=== PATIENT | male | born 1975 | race Caucasian/White ===

== ENCOUNTER 2020-12-02 22:12 | Emergency (ER) | payer OTHER, SELFPAY ==
[2020-12-02 22:13] VITALS: BP 137/96; PULSE 97; RESP 18; TEMP 35.7; O2SAT 92; BMI 90.2
[2020-12-02 23:33] VITALS: O2SAT 94
--- NOTE | 2020-12-03 00:05 | RAD_ITS ---
EXAM: XR Chest, 1 View CLINICAL INDICATION: 45 years old, Male; covid TECHNIQUE: Frontal view of the chest. This report was created using [employer] report generation technology. COMPARISON: None. FINDINGS: Lungs and pleural spaces: Mild infiltrate or atelectasis in the lung bases. No pneumothorax. No effusion. Heart: Unremarkable. Cardiac silhouette not enlarged. Mediastinum: Central airways and mediastinal contour are unremarkable. Bones/joints: Unremarkable. Soft tissues: Unremarkable. RAD/Chest 1 View (Portable) IMPRESSION: Mild infiltrate or atelectasis in the lung bases. ASSESSMENT: ABNORMAL report - There are abnormal findings in this report which may be related or unrelated to the reason for the exam. Electronically Signed: Grant Odonnell MD at 0:41 EDT Tel , Service support ,
--- NOTE | 2020-12-03 00:21 | ED.VIS.DYS ---
HPI History of Present Illness Chief Complaint: Shortness of Breath Informant: patient and spouse/S.O. Onset/Context/Timing Onset: Days Context: gradual Timing: Intermittent Current Severity: Mild Associated Symptoms cough and green sputum Chest Pain: Positive for None Narrative Narrative: 45-year-old male history of very mild asthma which is no medications for. 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 Patient had symptoms beginning last Wednesday 5+ days ago. And was diagnosed with Covid on Wednesday. States he is having a cough and mildly short of breath. PE Risk Factors: Negative for Cancer, OCP + Smoking + > 35, Prior DVT or PE, Recent immobilization, Recent surgery and Recent travel Prior similar symptoms: No Recent Illness/Hospitalization: No PFSH PFSH Medical History (Updated 12/03/20 @ 01:[address] Shahid Cleaning MD) Asthma COVID-19 Home Medications dexamethasone [Decadron] 6 mg PO DAILY 7 Days #7 tab 12/03/20 [Rx Last Taken Unknown] sulfamethoxazole-trimethoprim 600 tab PO QODAY 12/03/20 [History Last Taken Unknown] Allergy/AdvReac Type Severity Reaction Status Date / Time No Known Allergies Allergy Verified 12/03/20 01:06 Social History Smoking Status: Never smoker ROS ROS ED ROS Narrative Cough. Limited nausea and vomiting resolved. Review of Systems ROS Unobtainable: Denies due to encephalopathy Constitutional Constitutional ED: Denies chills or fever(s) Eyes Eyes: Denies change in vision ENT ENT ED: Denies ear pain or sore throat Cardiovascular Cardiovascular: Denies chest pain Respiratory/Chest Respiratory/Chest: Reports cough, dyspnea and sputum Gastrointestinal Gastrointestinal: Reports nausea and vomiting; Denies abdominal pain Genitourinary Genitourinary ED: Denies dysuria or hematuria Musculoskeletal Musculoskeletal: Reports myalgias Integumentary Denies rash Neurologic Neurologic: Denies headache(s) Psychiatric Psychiatric: Denies depression Endocrine Endocrinology: Denies polyuria Hematologic/Lymphatic Hematologic/Lymphatic: Denies easy bruising Allergic/Immunologic Allergic/Immunologic ED: Denies urticaria EXAM Physical Exam Narrative Exam Narrative: Middle-age male no acute distress vital signs stable afebrile pulse ox 92% on room air no signs hypoxia. HEENT exam unremarkable. Neck nontender no lymphadenopathy. Lungs clear to auscultation bilaterally. No rales, rhonchi or wheezing. Heart regular rate and rhythm no murmur. Rate 90. Abdomen soft nontender normal bowel sounds no peritoneal signs. Moving all 4 extremities. Calves nontender no edema. Neurologic exam awake alert no focal motor deficits. Const Vital Signs: 12/02/20 22:13 Temperature 96.3 F L Temperature Source Temporal Pulse Rate 97 Respiratory Rate 18 Blood Pressure 137/96 H Blood Pressure Mean 109 Pulse Ox 92 Oxygen Delivery Method Room Air Positive well nourished, well developed and obese; Negative for cachectic, contractures or unkempt General Appearance ED: well developed and NAD; Negative for unkempt, cachectic, contractures or pallor Nutritional Appearance: obese; Negative for cachectic HEENT Reports moist mucous membranes atraumatic; Negative for trauma or tenderness Eyes PERRL and EOMs intact bilaterally Neck no lymphadenopathy, supple, no meningeal signs and no JVD General: Negative for tenderness Resp normal respiratory effort and clear to auscultation bilaterally Auscultation: Negative for rales, rhonchi or wheezes Cardio regular rate, regular rhythm, S1 normal heart sound, S2 normal heart sound and no murmurs GI non-tender, non-distended and no masses Auscultation: normoactive bowel sounds Palpation: soft; Negative for tender Back/Spine no CVA tenderness and normal to inspection General Back: Negative for CVA tenderness Extremity normal to inspection General Extremety ED: Negative for edema or tenderness General Extremity: Negative for edema Neuro oriented x3 Sensorium / Orientation: alert, oriented to person, oriented to place and oriented to time; Negative for orientation impaired, confused, lethargic or stuporous Motor Exam: strength 5/5 throughout Psych mental status grossly normal Appearance: Negative for unkempt Skin no wounds General Skin Exam: Negative for jaundice or pallor Lesions: no lesions Rashes: no rashes MDM MDM MDM Narrative Medical decision making narrative: 25-year-old male with Covid diagnosed on Wednesday. Symptoms for 5 days. Chest x-ray being obtained. He'll be referred to the monoclonal antibody therapy center. Repeat exam patient is doing well. Will be written for Decadron. He can speak to his dental specialist at [facility] to determine if at some they want him to do with his history of ocular toxoplasmosis.He will also be referred to the monoclonal antibody center. Radiography Chest X-Ray - ED: 1 View, Read by ED Physician, Heart, Lungs, Mediastinum, Bony Structures, Right Infiltrate and Left Infiltrate Diagnostic Testing: Radiology Impression Chest X-Ray 12/03/20 00:05 IMPRESSION: Mild infiltrate or atelectasis in the lung bases. ASSESSMENT: ABNORMAL report - There are abnormal findings in this report which may be related or unrelated to the reason for the exam. Electronically Signed: Grant Odonnell MD at 0:41 EDT Tel , Service support , Portable single view chest x-ray interpreted by myself and the radiologist may be atelectasis versus early infiltrates of Covid. Discharge Plan Triage Chief Complaint: Shortness of Breath ED Provider: Shahid Cleaning Dx/Rx/DC Orders Clinical Impression: COVID-19 Instructions: Coronavirus Disease 2019 (COVID-19): Overview, Symptoms of COVID-19 Infection Prescriptions: New dexamethasone [Decadron] 6 mg tablet 6 mg PO DAILY 7 Days Qty: 7 RF: 0 No Action sulfamethoxazole-trimethoprim 800-160 mg tablet 600 tab PO QODAY RF: 0 Other Ambulatory Orders: COVID Outpatient Monoclonal Antibody Referral (Routine) Timeframe: 1 Day Facility: [facility] - Location: [facility] Ordered By: Dr. Shahid Cleaning Primary Care Provider: Care Physician,No Primary Referrals: Rubén Candelaria MD [STAFF PHYSICIAN] - 1 Week if not improving Care Physician,No Primary [Primary Care Provider] - Activity Restrictions/Additional Instructions: Follow-up with your clinic assistant the [facility] discussed with them Decadron treatment versus any complications with your toxoplasmosis. Follow-up with the monoclonal antibody therapy center here at the hospital tomorrow. They should call you.If you do not hear from them by noon call them. Return if you are feeling a lot worse. Disposition Disposition: Home, Self Care
[2020-12-03 01:17] VITALS: PULSE 86; RESP 20; O2SAT 94
== END 2020-12-03 01:17 | disposition home or self-care (01) ==
PROVIDERS: Emergency Provider Emergency Medicine
DX: U07.1 COVID-19 (principal); R11.2 Nausea with vomiting, unspecified; J45.909 Unspecified asthma, uncomplicated; E66.9 Obesity, unspecified; Z79.52 Long term (current) use of systemic steroids
CPT/HCPCS: 71045; 99282

== ENCOUNTER 2022-04-27 16:30 | Outpatient (RCR) | payer OTHER, SELFPAY ==
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
--- NOTE | 2022-03-23 17:27 | OTREVAL_ITS ---
Dr. 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 Please see the progress note below for an update on the occupational therapy plan of care! Subjective: pt arrives to session 3 weeks after last session- due to not feeling well. pt states he is weaning out of his orthosis and 10-15 min about every hour- pt states he did try to see he could go 20-25 min but noticed a decrease in the ability to straighten. pt voiced frustration about dealing with injury due to pain limited ROM limiting what pt wants to do. Objective/Function: pt arrives with orthosis on. right IF PIP -5/80*. right cook mayonnaise 95# left 105#(no change from eval). right lateral pinch 14# increase 10# left 18#. right tripod pinch 14# increase from NT left 16#. pt demo improvement in balance of Flex/ext following ex. noted increase in extensor lag by 10* following strengthening of flexor of finger- worked on extensors an noted improvement-. Therapist advised to zoraida tape IF to MF to assist in strength and support to decrease pain and catching finger on something and causing more pain- pt demo understanding-. therapist ed pt on reverse blocking. rubber band use for strengthening extensor component. therapist extensively ed. pt on recovery time can take up to a year. pt demo frustration and irritation of injury as he want to return to his PLOF. Asked pt to give therapist more time to balance flexors and extensors out to get consistent glide and motion. Plan Frequency: 1-2x /Week Duration: 4-6 Weeks Plan: progressing to balance of flexor and extensor components- rec'd 2x a week for 4-6 weeks but pt unable to arrive to sessions more than 1x a week- therapist will ed. pt on ex. HEP Goals - Goals Patient Goals: Regain Mobility, Decrease Pain, Decrease Swelling/Stiffness, Use Hand/Wrist/Arm Normally Again Goal:100% adherence to protocol: Yes Goal:ROM equal to unaffected hand: Yes Goal:Supervisor Aircraft Maintenance/Pinch strength at least 75% of unaffected hand: Yes Goal:No pain with affected hand use: Yes Goal:PIP Circumferences equal to unaffected hand: Yes Goal:Full use of affected hand in daily activities including: Yes Anticipated Interventions Anticipated Interventions: A/AAROM/PROM, Strengthening, Triggerpoint Release, Modalities, Orthoses, Joint Protection/Energy Conservation, Ergonomic Education, Fine Motor Coord/Nathan, Education re assistive Equipment, Education re Diagnosis, Home Program Please do not hesitate to contact me at [phone] by phone or if you have questions or concerns regarding this new plan of care! Sincerely, Jordana Peters, OTR/L, CHT
--- NOTE | 2022-04-28 07:48 | OTREVAL_ITS ---
Dr. 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 Please see the progress note below for an update on the occupational therapy plan of care! Subjective: pt arrives to therapy following last apt. on 03/23/22. pt states he is out of his orthosis completely- pt states he is doing extension excises.pt states he does not feel his finger has changed much- pt states he feel he is just as painful that he is getting use to it. Objective/Function: pt arrives with orthosis off states he has gone without it and has noticed a he can not straighten his finger as much-. right IF PIP - /* DIP +08/06 ( this has changed since his last apt) therapist ed. pt on importance of ex ORL ( maintaining PIP ex while flexing DIP holding for 3-5 sec. NO Fast movements) pt communicates understanding pt demo understanding of the ex. Therapist ed. pt to return to night splint to decrease stress on tendons pt demo understanding but does voice irritation as he has been dealing with injury for so long- therapist attempted to reassure pt it will take a year to recover fully from injury. That in order to balance pull of extensor and flexor tendons he may use splint on and off for a year. pt communicates he is discouraged-pt unable to attend therapy sessions consistently due to schedule and cost. pt given HEP and advised to email/call therapist with concerns- would rec'd pt attending therapy at least to ensure orthosis/splint is still appropriate- pt going to see and than touch base with this therapist. right doughnut machine operator 95# left 105#(no change from eval). right lateral pinch 14# increase 10# left 18#. right tripod pinch 14# increase from NT left 16#. strength does not appear affected at this time from injury. pt demo improvement in balance of Flex/ext following ex. noted increase in extensor lag by 10* following strengthening of flexor of finger- worked on extensors an noted improvement-. Therapist advised to zoraida tape IF to MF to assist in strength and support to decrease pain and catching finger on something and causing more pain- pt demo understanding-. therapist ed pt on reverse blocking. rubber band use for strengthening extensor component. ORL movement with blocking PIP with MP in flexion to avoid hyper ext at MP. therapist extensively ed. pt on recovery time can take up to a year. pt demo frustration and irritation of injury as he want to return to his PLOF. Asked pt to give therapist more time to balance flexors and extensors out to get consistent glide and motion. pt to return to for further assessment and evaluation Plan Frequency: Every Other Week Duration: 3 Months Plan: pt to return to dr. pt will cont with use of splint at night to rest tendon pt to cont. with his HEP Goals - Goals Patient Goals: Regain Mobility, Decrease Pain, Decrease Swelling/Stiffness, Use Hand/Wrist/Arm Normally Again Goal:100% adherence to protocol: Yes Goal:ROM equal to unaffected hand: Yes Goal:Hedis Review Nurse/Pinch strength at least 75% of unaffected hand: Yes Goal:No pain with affected hand use: Yes Goal:PIP Circumferences equal to unaffected hand: Yes Goal:Full use of affected hand in daily activities including: Yes Anticipated Interventions Anticipated Interventions: A/AAROM/PROM, Strengthening, Triggerpoint Release, Modalities, Orthoses, Joint Protection/Energy Conservation, Ergonomic Education, Fine Motor Coord/Nathan, Education re assistive Equipment, Education re Diagnosis, Home Program Please do not hesitate to contact me at [phone] by phone or Fax: if you have questions or concerns regarding this new plan of care! Sincerely, Jordana Peters OTR/L, CHT
--- NOTE | 2022-07-14 08:05 | HP.OTDCSUM ---
It has been my pleasure to treat CANDELARIO CURRIE under orders from Dr. 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 Please see the following information for a summary of their discharge status. Objective/Function: pt arrives with orthosis off states he has gone without it and has noticed a he can not straighten his finger as much-. right IF PIP -25/85* DIP +08/06 ( this has changed since his last apt) therapist ed. pt on importance of ex ORL ( maintaining PIP ex while flexing DIP holding for 3-5 sec. NO Fast movements) pt communicates understanding pt demo understanding of the ex. Therapist ed. pt to return to night splint to decrease stress on tendons pt demo understanding but does voice irritation as he has been dealing with injury for so long- therapist attempted to reassure pt it will take a year to recover fully from injury. That in order to balance pull of extensor and flexor tendons he may use splint on and off for a year. pt communicates he is discouraged-pt unable to attend therapy sessions consistently due to schedule and cost. pt given HEP and advised to email/call therapist with concerns- would rec'd pt attending therapy at least to ensure orthosis/splint is still appropriate- pt going to see and than touch base with this therapist. right well logging mud analysis captain 95# left 105#(no change from eval). right lateral pinch 14# increase 10# left 18#. right tripod pinch 14# increase from NT left 16#. strength does not appear affected at this time from injury. pt demo improvement in balance of Flex/ext following ex. noted increase in extensor lag by 10* following strengthening of flexor of finger- worked on extensors an noted improvement-. Therapist advised to zoraida tape IF to MF to assist in strength and support to decrease pain and catching finger on something and causing more pain- pt demo understanding-. therapist ed pt on reverse blocking. rubber band use for strengthening extensor component. ORL movement with blocking PIP with MP in flexion to avoid hyper ext at MP. therapist extensively ed. pt on recovery time can take up to a year. pt demo frustration and irritation of injury as he want to return to his PLOF. Asked pt to give therapist more time to balance flexors and extensors out to get consistent glide and motion. pt to return to dr. for further assessment and evaluation Patient Goals: Regain Mobility, Decrease Pain, Decrease Swelling/Stiffness, Use Hand/Wrist/Arm Normally Again Goal:100% adherence to protocol: Yes Goal:ROM equal to unaffected hand: Yes Goal:[employer] Assembler/Pinch strength at least 75% of unaffected hand: Yes Goal:No pain with affected hand use: Yes Goal:PIP Circumferences equal to unaffected hand: Yes Goal:Full use of affected hand in daily activities including: Yes Plan: pt to return to dr. pt will cont with use of splint at night to rest tendon pt to cont. with his HEP If there are questions or concerns regarding this patient's occupational therapy, please fell free to call me at [phone]. Thank you for the referral of this patient. Sincerely, Jordana Peters, OTR/L, CHT
== END 2022-04-27 19:00 | disposition home or self-care (01) ==
LOC: OT 16:30
PROVIDERS: Referring Provider Orthopaedic Surgery Hand Surgery; Visit Provider Orthopaedic Surgery Hand Surgery
DX: M20.021 Boutonniere deformity of right finger(s) (principal)
CPT/HCPCS: 97110; 97140; 97166; 97530; 97760

== ENCOUNTER 2022-11-07 22:43 | Emergency (ER) | payer OTHER, SELFPAY ==
[2022-11-07 22:44] VITALS: BP 140/82; PULSE 84; RESP 16; TEMP 35.8; BMI 41.4
[2022-11-07 22:47] VITALS: BP 140/82; PULSE 79; RESP 16; TEMP 35.8
[2022-11-07] MEDS: Lidocaine 2% /Epi 1:100 (20ml) 20 ML VIAL INFILT (23:07)
--- NOTE | 2022-11-07 23:32 | EX.ED.DYSGE1 ---
HPI History of Present Illness Chief Complaint: Foreign Body Informant: patient and spouse/S.O. Narrative Narrative: Patient is a 47-year-old male with past medical history of asthma. He states around 7:00 he was fishing with his son and when his son went to cast he was struck in the right upper arm with a fishhook. He states he tried to remove the hook at home but secondary to the Ruth was unable to do so. Secondary to this he comes in for evaluation. He denies any numbness tingling or weakness. He states his tetanus was updated roughly 1 year ago. [facility] Medical History Asthma COVID-19 Hay fever SOB (shortness of breath) Home Medications sulfamethoxazole 800 mg-trimethoprim 160 mg tablet 600 tab PO QODAY 12/03/20 [History Last Taken Unknown] cetirizine 10 mg capsule (Zyrtec) 10 mg PO DAILY PRN 12/06/20 [History Last Taken Unknown] dexamethasone 6 mg tablet (Decadron) 6 mg PO DAILY #10 tabs 12/06/20 [Rx Last Taken Unknown] guaifenesin 600 mg tablet, extended release 12 hr (Mucinex) 600 mg PO BID 12/06/20 [History Last Taken Unknown] pseudoephedrine HCl 120 mg tablet,extended release (Sudafed 12 Hour) 120 mg PO Q12H 12/06/20 [History Last Taken Unknown] Allergy/AdvReac Type Severity Reaction Status Date / Time No Known Allergies Allergy Verified 11/07/22 22:43 Social History Smoking Status: Never smoker ROS ROS ED Constitutional Constitutional ED: Denies chills or fever(s) ENT ENT ED: Denies sore throat Cardiovascular Cardiovascular: Denies chest pain Respiratory/Chest Respiratory/Chest: Denies cough or dyspnea Gastrointestinal Gastrointestinal: Denies abdominal pain, diarrhea, nausea or vomiting Genitourinary Genitourinary ED: Denies dysuria Musculoskeletal Musculoskeletal: Reports other Details: Positive foreign body right upper arm Integumentary Reports other Details: Positive puncture wound right upper arm Neurologic Neurologic: Denies headache(s) or paresthesias Hematologic/Lymphatic Hematologic/Lymphatic: Denies easy bleeding or easy bruising EXAM Physical Exam Const Vital Signs: 11/07/22 22:44 11/07/22 22:47 Temperature 96.5 F L 96.5 F L Temperature Source Temporal Temporal Pulse Rate 84 79 Respiratory Rate 16 16 Blood Pressure 140/82 H 140/82 H Blood Pressure Mean 101 101 Positive well nourished and well developed General Appearance ED: well developed HEENT HEENT Narrative: Normocephalic atraumatic Eyes PERRL and EOMs intact bilaterally Neck supple Resp normal respiratory effort and clear to auscultation bilaterally Cardio regular rate and regular rhythm Extremity Extremity Narrative: Right upper extremity is neurovascularly intact; AIN/PIN are intact and normal. Patient has a fishhook present in the medial aspect of the right mid upper arm puncturing through the soft tissue with out signs of secondary infection or arterial bleeding. Neuro oriented x3, CN's II-XII intact bilaterally and no sensory deficits noted Sensorium / Orientation: alert Motor Exam: strength 5/5 throughout Psych mental status grossly normal Skin no rashes or lesions noted Skin Narrative: Puncture wound with retained foreign body in the right upper arm as documented above MDM MDM MDM Narrative Medical decision making narrative: Patient presented to the ER afebrile and in no acute distress. He had a puncture wound to the right upper arm but had no signs of neurovascular compromise or arterial bleeding or signs of infection. Therefore there is no need for imaging or laboratory studies. The patient also reported his tetanus status was updated 1 year ago therefore there is no need to provide this. Secondary to the retained foreign body the patient had the area cleaned and anesthetized as documented below and then the foreign body was removed. As the foreign body was a fishhook there is concern for secondary infection but patient is currently on Bactrim and therefore do not feel there is need for further antibiotics. No of the foreign body has been removed he does not require antibiotics or tetanus update and he has no signs of neurovascular compromise he is safe for discharge Patient had the right upper arm cleaned with chlorhexidine. The area was anesthetized with 6 mL of 2% lidocaine with epinephrine in local fashion. Manual pressure was used to force the fishhook through the soft tissue. The ruth was then compressed/collapsed using forceps. Following this the hook was then able to be retracted through the proximal opening coming out in 1 complete piece. Patient tolerated procedure well without complication. History & Record Review Discussion w/independent historian: Patient and Significant other Discharge Plan Triage Chief Complaint: Foreign Body ED Provider: Gabriel Turcios Dx/Rx/DC Orders Clinical Impression: History of asthma, Fish hook injury of right upper arm Instructions: ED Foreign Body, Soft Tissue (Removed) Prescriptions: No Action guaifenesin [Mucinex] 600 mg tablet extended release 12hr 600 mg PO BID Zyrtec 10 mg capsule 10 mg PO DAILY PRN pseudoephedrine HCl [Sudafed 12 Hour] 120 mg tablet extended release 120 mg PO Q12H dexamethasone [Decadron] 6 mg tablet 6 mg PO DAILY Qty: 10 0RF sulfamethoxazole-trimethoprim 800-160 mg tablet 600 tab PO QODAY Patient Comments: take 1 tablet by mouth 3 TIMES WEEKLY ON WEDNESDAY, WEDNESDAY, AND WEDNESDAY Primary Care Provider: Lloyd Liang Referrals: Lloyd Liang DO [Primary Care Provider] - Activity Restrictions/Additional Instructions: Watch for signs of infection such as developing redness fever or lymphangitic streaking and if you have any further concerns please return for repeat evaluation Disposition Disposition: Home, Self Care
== END 2022-11-07 23:43 | disposition home or self-care (01) ==
PROVIDERS: Emergency Provider Emergency Medicine; PCP Student in an Organized Health Care Education/Training Program; Visit Provider Emergency Medicine
DX: S41.141A Puncture wound with foreign body of right upper arm, initial encounter (principal); W45.8XXA Other foreign body or object entering through skin, initial encounter; Y93.89 Activity, other specified; J45.909 Unspecified asthma, uncomplicated
CPT/HCPCS: 99283